=== PATIENT | female | born 1985 ===

== ENCOUNTER → 2022-05-15 08:06 | Outpatient (CLI) | payer BC, SELFPAY ==
--- NOTE | ~2022-05-15 | MMUS_ITS ---
EXAMINATION: MM diagnostic alison BI w steven, US breast BI complete HISTORY: Lateral breast pain 10 days before menstrual cycle. Bilateral lumpy breasts. TECHNIQUE: ML, MLO and CC 3-D tomosynthesis images of both breasts were performed and synthetic 2-D i mages were generated. CAD analysis was submitted and interpreted. High resolution complete bilateral breast ultrasound examination including all 4 quadrants and subareolar area of each breast was perfor med. COMPARISON: None BREAST PARENCHYMAL COMPOSITION: The breasts are extremely dense, which lowers the sensitivity of mamm ography. FINDINGS: MAMMOGRAPHIC FINDINGS: Possible bilateral breast masses, largely obscured by dense fibroglandular stroma. No architectural d istortion, malignant calcification, skin thickening or retraction is detected. ULTRASOUND: No suspicious mass or suspicious shadowing of either breast is detected. Right breast: 2:00 3 cm from nipple: Parallel circumscribed 1.2 x 3.8 x 4 mm sonolucency, likely a small cyst 6:00 3 cm from nipple: 4.6 x 6.7 x 7 mm parallel circumscribed hypoechoic lesion without internal vas cularity or posterior shadowing, benign in appearance 7:00 6 cm from nipple: 2.5 x 4.9 x 4.5 mm parallel circumscribed sonolucency 8:00 9 cm from nipple: Parallel circumscribed 2.6 x 4 x 5 mm sonolucency 9:00 7 cm from nipple: Parallel 8.3 x 4.6 x 11 mm complicated benign-appearing cyst 10:00 8 cm from nipple: 2.5 x 5 mm cyst 10:00 8 cm from nipple: 3 mm cyst Left breast: 12:00 1 cm from nipple: 3.5 x 7 x 7.8 mm parallel circumscribed hypoechoic area, benign in appearance 2:00 5 cm from nipple: 8 x 24 x 23 mm simple cyst 3:00 4 cm from nipple: 2.6 x 6.1 x 6 mm cyst 6:00 6 cm from nipple: 3 mm cyst 10:00 6 5 cm from nipple: 4.4 x 8.1 x 6.6 mm multi septated cyst without internal vascularity 11:00 3 cm from nipple: Parallel circumscribed sonolucency measuring approximately 2 x 6.7 x 4.6 mm, benign 11:00 3 cm from nipple: 3 mm cyst 11:00 3 cm from nipple: 3.7 x 8.8 x 9 mm cyst IMPRESSION: 1. Benign findings 2. Routine annual mammographic screening beginning at age 40 is recommended, with possible supplement al MR and/or ultrasound imaging, considering the very dense breast stroma BI-RADS Category 2: Benign finding(s). Reviewed, dictated and finalized at location A. IMPRESSION: 1. Benign findings 2. Routine annual mammographic screening beginning at age 40 is recommended, wi th possible supplemental MR and/or ultrasound imaging, considering the very den se breast stroma BI-RADS Category 2: Benign finding(s).
== END ==
PROVIDERS: PCP Pediatrics; Visit Provider Pediatrics
DX: N63.10 Unspecified lump in the right breast, unspecified quadrant (principal)
CPT/HCPCS: 76641; 77062; 77066; G0279